=== PATIENT | male | born 1955 | race Caucasian/White ===

== ENCOUNTER 2019-05-09 18:56 | Emergency (ER) | payer MEDICARE, MEDICAID ==
[~2019-05-09] VITALS: Ht 170.2 cm; Wt 138.0 kg
[~2019-05-09 18:56] MED LIST: HYDR-4353 PO
[2019-05-09] MEDS ORDERED: CYCL-1 PO (20:13)
[2019-05-09 20:21] VITALS: BP 152/92
== END 2019-05-09 20:23 | disposition home or self-care (01) ==
LOC: ER 18:57
DX: S13.4XXA Sprain of ligaments of cervical spine, initial encounter (principal); S23.3XXA Sprain of ligaments of thoracic spine, initial encounter; S33.5XXA Sprain of ligaments of lumbar spine, initial encounter; G89.29 Other chronic pain; M19.90 Unspecified osteoarthritis, unspecified site; Z98.890 Other specified postprocedural states; Z91.013 Allergy to seafood; X50.1XXA Overexertion from prolonged static or awkward postures, initial encounter; Y93.89 Activity, other specified; Y92.89 Other specified places as the place of occurrence of the external cause; Y99.9 Unspecified external cause status
CPT/HCPCS: 99283

== ENCOUNTER 2019-06-07 10:27 | Emergency (ER) | payer MEDICARE, MEDICAID ==
[~2019-06-07] VITALS: Ht 170.2 cm; Wt 136.4 kg
[~2019-06-07 10:27] MED LIST changes: +CYCL-1 PO
[2019-06-07 11:15] VITALS: BP 152/104
[2019-06-07] MEDS ORDERED: METH-360 PO (11:34)
[2019-06-07] MEDS ORDERED: methylPREDNISolone sod succ 125mg/2ml vial IM ONE (11:35)
[2019-06-07] MEDS ORDERED: ketorolac trometh inj. 60 MG/2 ML VIAL IM ONE (11:35)
--- NOTE | 2019-06-07 12:28 | NUR ---
Pt stated that he has an emergency and must leave the department. Requesting discharge instruction and to be contact via phone if anything is found on his CXR. Verified updated number with registration and pt left dept.
== END 2019-06-07 12:34 | disposition home or self-care (01) ==
LOC: ER 10:28
DX: R07.81 Pleurodynia (principal); G89.29 Other chronic pain; R05 Cough; M25.561 Pain in right knee; M19.90 Unspecified osteoarthritis, unspecified site; G47.30 Sleep apnea, unspecified; F10.99 Alcohol use, unspecified with unspecified alcohol-induced disorder; Z98.890 Other specified postprocedural states; Z87.891 Personal history of nicotine dependence; Z60.2 Problems related to living alone; Z79.899 Other long term (current) drug therapy; Y90.9 Presence of alcohol in blood, level not specified
CPT/HCPCS: 71101; 96372; 99283; J1885; J2930

== ENCOUNTER 2019-10-24 08:20 | Day surgery (SDC) | payer MEDICARE, MEDICAID ==
[~2019-10-24 08:20] MED LIST changes: +ASPI-611 PO; +ATOR20TA66 PO; -CYCL-1 PO; +FURO20TA4 PO; +HYDR-3972 PO; -HYDR-4353 PO; +LACT1CAP26 PO; +LINE600T12 PO; +MORP-92 PO; +MULT-933 PO; +POTA10CA44 PO; +PREG100C55 PO
[2019-10-24] MEDS ORDERED: LIDOcaine 2% 5ml jelly ONE ×2 (09:24→10:39)
[2019-10-24 11:22] LABS: HEMOGLOBIN A1C 5.6 % (4.5-6.2)
[2019-10-24 11:28] LABS: C-REACTIVE PROTEIN 1.44 MG/DL (0.0-0.5)
== END 2019-10-24 11:00 | disposition home or self-care (01) ==
LOC: WOUND CARE 08:20
PROVIDERS: ATTEND Nurse Practitioner
DX: L97.811 Non-pressure chronic ulcer of other part of right lower leg limited to breakdown of skin (principal); L03.115 Cellulitis of right lower limb; E78.5 Hyperlipidemia, unspecified; G47.30 Sleep apnea, unspecified; I25.10 Atherosclerotic heart disease of native coronary artery without angina pectoris; G89.4 Chronic pain syndrome; K21.9 Gastro-esophageal reflux disease without esophagitis; E66.01 Morbid (severe) obesity due to excess calories; E87.6 Hypokalemia; F12.10 Cannabis abuse, uncomplicated; F41.9 Anxiety disorder, unspecified; F17.200 Nicotine dependence, unspecified, uncomplicated; Z95.0 Presence of cardiac pacemaker; Z96.651 Presence of right artificial knee joint; Z68.41 Body mass index [BMI] 40.0-44.9, adult; Z79.899 Other long term (current) drug therapy
CPT/HCPCS: 36415; 73560; 73590; 73630; 83036; 85651; 86140; 97597; 97598

== ENCOUNTER 2019-10-31 08:45 | Day surgery (SDC) | payer MEDICARE, MEDICAID ==
[2019-10-31] MEDS ORDERED: LIDOcaine 2% 5ml jelly ONE (09:24)
== END 2019-10-31 10:42 | disposition home or self-care (01) ==
LOC: WOUND CARE 08:45
PROVIDERS: ATTEND Nurse Practitioner
DX: L97.811 Non-pressure chronic ulcer of other part of right lower leg limited to breakdown of skin (principal); L03.115 Cellulitis of right lower limb; E78.5 Hyperlipidemia, unspecified; G47.30 Sleep apnea, unspecified; I25.10 Atherosclerotic heart disease of native coronary artery without angina pectoris; G89.4 Chronic pain syndrome; K21.9 Gastro-esophageal reflux disease without esophagitis; E66.01 Morbid (severe) obesity due to excess calories; E87.6 Hypokalemia; F12.10 Cannabis abuse, uncomplicated; F41.9 Anxiety disorder, unspecified; F17.200 Nicotine dependence, unspecified, uncomplicated; Z95.0 Presence of cardiac pacemaker; Z96.651 Presence of right artificial knee joint; Z68.41 Body mass index [BMI] 40.0-44.9, adult; Z79.899 Other long term (current) drug therapy
CPT/HCPCS: 93922; 93926; G0463

== ENCOUNTER 2019-11-07 08:25 | Day surgery (SDC) | payer MEDICARE, MEDICAID | END 2019-11-07 09:40 | disposition home or self-care (01) | LOC: WOUND CARE 08:25 | PROVIDERS: ATTEND Nurse Practitioner | DX: L97.811 Non-pressure chronic ulcer of other part of right lower leg limited to breakdown of skin (principal); L97.212 Non-pressure chronic ulcer of right calf with fat layer exposed; L03.115 Cellulitis of right lower limb; E78.5 Hyperlipidemia, unspecified; G47.30 Sleep apnea, unspecified; I25.10 Atherosclerotic heart disease of native coronary artery without angina pectoris; G89.4 Chronic pain syndrome; K21.9 Gastro-esophageal reflux disease without esophagitis; E66.01 Morbid (severe) obesity due to excess calories; E87.6 Hypokalemia; F12.10 Cannabis abuse, uncomplicated; F41.9 Anxiety disorder, unspecified; F17.200 Nicotine dependence, unspecified, uncomplicated; Z95.0 Presence of cardiac pacemaker; Z96.651 Presence of right artificial knee joint; Z68.41 Body mass index [BMI] 40.0-44.9, adult; Z79.899 Other long term (current) drug therapy | CPT/HCPCS: 97597 ==

== ENCOUNTER 2020-01-11 17:54 | Emergency (ER) | payer MEDICARE, MEDICAID ==
[~2020-01-11] VITALS: Ht 172.7 cm; Wt 127.3 kg
[~2020-01-11 17:54] MED LIST changes: -LINE600T12 PO
[2020-01-11 18:10] VITALS: BP 138/85
[2020-01-11] MEDS ORDERED: orphenadrine citrate 60mg/2ml inj. IM ONE (19:00)
[2020-01-11] MEDS ORDERED: ketorolac tromethamine 15mg/ml inj. IM ONE (19:00)
[2020-01-11] MEDS ORDERED: ORPH100T2 PO (19:01)
--- NOTE | 2020-01-11 19:27 | NUR ---
Pt was not given Norflex IM injection because Pt stated he drove himself to hospital and Pt could not arrange a safe ride home. Pt was discharged with Rx for PO Norflex. Pt was upset because he was not going to receive Norflex injection because he drove himself to hospital. Pt then denied driving himself to the hospital, then stated he did not know how he got here. Pt stated that "next time I'll drive to the hospital and tell them I did not drive so that I can get the medication I want."
== END 2020-01-11 19:34 | disposition home or self-care (01) ==
LOC: ER 17:55
DX: G89.29 Other chronic pain (principal); M54.5 Low back pain; G47.30 Sleep apnea, unspecified; Z98.890 Other specified postprocedural states; Z72.89 Other problems related to lifestyle
CPT/HCPCS: 96372; 99283; J1885

== ENCOUNTER 2020-04-14 16:57 | Emergency (ER) | payer MEDICARE, MEDICAID ==
[~2020-04-14] VITALS: Ht 175.3 cm; Wt 129.0 kg
[~2020-04-14 16:57] MED LIST changes: +ORPH100T2 PO
[2020-04-14 17:04] VITALS: BP 140/84
[2020-04-14] MEDS ORDERED: ketorolac tromethamine 15mg/ml inj. IM ONE (17:25)
== END 2020-04-14 18:14 | disposition home or self-care (01) ==
LOC: ER 16:58
DX: M54.5 Low back pain (principal); M19.90 Unspecified osteoarthritis, unspecified site; G47.30 Sleep apnea, unspecified; G89.29 Other chronic pain; Z98.890 Other specified postprocedural states; Z91.013 Allergy to seafood; Z79.82 Long term (current) use of aspirin; Z79.899 Other long term (current) drug therapy; Z59.0 Homelessness; Z72.89 Other problems related to lifestyle
CPT/HCPCS: 96372; 99284; J1885

== ENCOUNTER 2020-08-06 12:57 | Outpatient (CLI) | payer MEDICARE, MEDICAID ==
[~2020-08-06 12:57] MED LIST changes: +barium sulfate 450ml oral suspension ONE
== END 2020-08-06 23:59 | disposition home or self-care (01) ==
LOC: RAD 12:57
PROVIDERS: ATTEND General Practice
DX: K21.9 Gastro-esophageal reflux disease without esophagitis (principal); R13.14 Dysphagia, pharyngoesophageal phase
CPT/HCPCS: 74230

== ENCOUNTER 2020-08-18 02:42 | Emergency (ER) | payer MEDICARE, MEDICAID ==
[~2020-08-18] VITALS: Ht 172.7 cm; Wt 127.3 kg
[~2020-08-18 02:42] MED LIST changes: -barium sulfate 450ml oral suspension ONE
[2020-08-18 02:54] VITALS: BP 129/68
[2020-08-18] MEDS ORDERED: ketorolac trometh. 30mg/ml inj. IM ONE (03:05)
== END 2020-08-18 03:43 | disposition home or self-care (01) ==
LOC: ER 02:43
DX: M54.5 Low back pain (principal); G89.29 Other chronic pain; Z72.89 Other problems related to lifestyle; Z60.2 Problems related to living alone; Z98.890 Other specified postprocedural states; Z79.82 Long term (current) use of aspirin; Z79.899 Other long term (current) drug therapy
CPT/HCPCS: 96372; 99283; J1885

== ENCOUNTER 2022-10-21 01:26 | Emergency (ER) | payer MEDICARE, MEDICAID ==
[~2022-10-21] VITALS: Ht 170.2 cm; Wt 120.6 kg
[~2022-10-21 01:26] MED LIST changes: -ASPI-611 PO; -ATOR20TA66 PO; -FURO20TA4 PO; +HYDR50TA65 PO; -LACT1CAP26 PO; -MULT-933 PO; -ORPH100T2 PO; -POTA10CA44 PO; -PREG100C55 PO; +TRAZ-256 PO
--- NOTE | 2022-10-21 02:30 | NUR ---
PT PACING AT ROOM'S DOOR, AMBULATED TO RESTROOM WELL.
[2022-10-21] MEDS ORDERED: OMEP20CA16 PO (03:49)
[2022-10-21] MEDS ORDERED: traZODone 50mg tablet PO ONE (03:50)
[2022-10-21] MEDS ORDERED: hydrOXYzine 25 MG tablet PO ONE (03:50)
[2022-10-21 03:57] VITALS: BP 155/94
== END 2022-10-21 03:59 | disposition home or self-care (01) ==
LOC: ER 01:26
DX: F41.9 Anxiety disorder, unspecified (principal); G89.29 Other chronic pain; M54.9 Dorsalgia, unspecified; Z79.899 Other long term (current) drug therapy
CPT/HCPCS: 99283; Q0177

== ENCOUNTER → 2024-01-13 | Outpatient (CLI) | payer MEDICARE, MEDICAID ==
[~2024-01-13] MED LIST changes: +OMEP20CA16 PO
== END | disposition home or self-care (01) ==
LOC: RAD 12:07
PROVIDERS: ATTEND General Practice
DX: R13.10 Dysphagia, unspecified (principal)
CPT/HCPCS: 74230